=== PATIENT | female | born 1965 | race Caucasian/White ===

== ENCOUNTER 2016-08-10 11:31 | Day surgery (SDC) | payer SELFPAY ==
[2015-06-14 10:58] VITALS: BMI 29.2
[2016-08-10] MEDS ORDERED: Lactated Ringer's 500 ML IV ONE (11:52)
[2016-08-10 12:51] VITALS: BP 91/53; PULSE 79; RESP 9; TEMP 97; O2SAT 99
== END 2016-08-10 13:04 | disposition home or self-care (01) ==
LOC: H.ENDO 11:31
PROVIDERS: ATTEND Internal Medicine Gastroenterology
DX: Z12.11 Encounter for screening for malignant neoplasm of colon (principal); K64.8 Other hemorrhoids

== ENCOUNTER 2018-04-11 16:12 | Emergency (ER) | payer OTHER ==
[2018-04-11 16:12] VITALS: BMI 29.2
[2018-04-11] MEDS ORDERED: Naproxen 500 MG TAB PO STA (18:33)
[2018-04-11 20:29] VITALS: BP 120/82; PULSE 64; RESP 18; TEMP 98; O2SAT 100
--- NOTE | 2018-04-11 21:29 | ED PDOC ---
HPI: Back Time Seen by Provider: 04/11/18 18:20 Chief Complaint (Nursing): Back Pain History Per: Patient Onset/Duration Of Symptoms: Days Current Symptoms Are (Timing): Still Present Quality Of Discomfort: Aching Severity: Moderate Pain Scale Rating Of: 6 Previous Symptoms: Back Pain Associated Symptoms: New Weakness Additional History Per: Family Additional Complaint(s): 52 yo F presents with one days of back pain, worse on left after falling off a step stool. Pt has abrasion to the left mid-back but does not have numbness or sensation to the legs. Pt states pain is so severe, she cannot sit regularly, lie on her back, or walk far. Pt has not tried to lift or perform strenuous activity. No urinary/fecal retention/incontinence or numbness to the thighs. Past Medical History Vital Signs: Last Vital Signs Temp 98 F 04/11/18 20:28 Pulse 64 04/11/18 20:28 Resp 18 04/11/18 20:28 BP 120/82 04/11/18 20:28 Pulse Ox 100 04/11/18 20:28 - Medical History PMH: Asthma, HTN, Hypercholesterolemia Denies: Alzheimer's Disease, HIV - Surgical History Surgical History: Hernia Repair - Family History Family History: States: Unknown Family Hx - Home Medications Home Medications: Ambulatory Orders Medication Instructions Recorded Cyclobenzaprine [Cyclobenzaprine 10 mg PO DAILY #6 tab 04/11/18 HCl] Naproxen 500 mg PO BID #14 tab 04/11/18 - Allergies Allergies/Adverse Reactions: Allergies Allergy/AdvReac Type Severity Reaction Status Date / Time No Known Allergies Allergy Verified 04/11/18 17:13 Physical Exam - Physical Exam Appears: Positive for: Well, Non-toxic, No Acute Distress Head Exam: Positive for: ATRAUMATIC Skin: Positive for: Normal Color, Warm, Dry Neck: Positive for: Normal. Negative for: Pain On Movement Of Neck Cardiovascular/Chest: Positive for: Regular Rate, Rhythm Respiratory: Positive for: Normal Breath Sounds Gastrointestinal/Abdominal: Positive for: Normal Exam Back: Positive for: Other (left sided abrasion, no bleeding/infection. paraspinal TTP along thoracic and lumbar spine.). 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 Abrasion without signs of infection. CT spine negative. Pain improved with Naproxen and Flexeril. Pt given rx for Naproxen and Flexeril. Disposition - Clinical Impression Clinical Impression: Acute back pain - Patient ED Disposition Is Patient to be Admitted: No - Disposition Disposition: Routine/Home Disposition Time: 21:33 Condition: IMPROVED Prescriptions: Cyclobenzaprine [Cyclobenzaprine HCl] 10 mg PO DAILY #6 tab Naproxen 500 mg PO BID #14 tab
--- NOTE | 2018-04-12 14:19 | CT ---
Date of service: 04/11/2018 PROCEDURE: CT Thoracic Spine without contrast HISTORY: back pain after mechanical fall COMPARISON: None available. TECHNIQUE: Axial computed tomography images were obtained of the thoracic spine without intravenous contrast. Coronal and sagittal reformatted images were created and reviewed. Radiation dose: Total exam DLP = 639.0 mGy-cm. This CT exam was performed using one or more of the following dose reduction techniques: Automated exposure control, adjustment of the mA and/or kV according to patient size, and/or use of iterative reconstruction technique. FINDINGS: VERTEBRAE: Unremarkable. No fracture. Normal alignment. There is minimal multilevel mid to inferior thoracic spondylosis anteriorly but not posteriorly. DISCS/SPINAL CANAL/NEURAL FORAMINA: Within the limits of the CT technique, no disc herniation seen. No central canal or neural foraminal stenosis.. MRI is greater sensitivity in evaluation of disc herniation and can be performed if clinically warranted. OTHER FINDINGS: Unremarkable. IMPRESSION: Unremarkable CT of the thoracic spine. If clinical concern remains, then consider follow-up thoracic spine MRI.
--- NOTE | 2018-04-12 14:27 | CT ---
Date of service: 04/11/2018 PROCEDURE: CT Lumbar Spine without contrast HISTORY: back pain after fall COMPARISON: None available. TECHNIQUE: Axial computed tomography images were obtained of the lumbar spine without the use of intravenous contrast. Coronal and sagittal reformatted images were created and reviewed. Radiation dose: Total exam DLP = 468.0 mGy-cm. This CT exam was performed using one or more of the following dose reduction techniques: Automated exposure control, adjustment of the mA and/or kV according to patient size, and/or use of iterative reconstruction technique. FINDINGS: VERTEBRAE: Minimal multilevel anterior spondylosis appreciated relatively diffusely with none posteriorly. No fracture. Normal alignment. DISCS/SPINAL CANAL/NEURAL FORAMINA: L1-2: Unremarkable. L2-3: Unremarkable. L3-4: A circumferential disc bulge identified flattening the ventral thecal sac and encroaching the bilateral lateral recesses without generalized central stenosis appreciated. L4-5: A circumferential disc bulge identified flattening the ventral thecal sac and encroaching the bilateral lateral recesses without generalized central stenosis appreciated. L5-S1: Unremarkable. PREVERTEBRAL AND PARASPINAL SOFT TISSUES: Unremarkable. OTHER FINDINGS: None. IMPRESSION: 1. No gross disc herniation appreciated throughout the exam. MRI is available follow-up if this remains a clinical concern. 2. Circumferential disc bulging is seen at L3-4 L4-5 flattening the ventral thecal sac and encroaching the bilateral lateral recesses somewhat with remaining levels unremarkable as imaged. No bony central stenosis throughout the exam. Concordant preliminary report from [facility], 04/11/2018 8:49 p.m..
== END 2018-04-11 21:38 | disposition home or self-care (01) ==
LOC: H.ER 16:12
DX: M54.6 Pain in thoracic spine (principal); I10 Essential (primary) hypertension; J45.909 Unspecified asthma, uncomplicated; E78.00 Pure hypercholesterolemia, unspecified